=== PATIENT | male | born 1980 | race Caucasian/White ===

== ENCOUNTER 2018-02-22 12:03 | Emergency (ER) | payer MEDICAID, SELFPAY ==
--- NOTE | 2018-02-22 12:14 | DI.REPORT_ITS ---
SYMPTOM/DIAGNOSIS: INGESTED 90 TRAZODONE TABLETS ACUTE ABDOMINAL SERIES: No priors. Heart size and pulmonary vasculature are within normal limits. The lungs are clear. The abdomen shows no evidence of obstruction, organomegaly or pneumoperitoneum. The bones and joints are unremarkable. IMPRESSION: Negative examination.
[2018-02-22 12:19] VITALS: BP 136/67; PULSE 80; RESP 18; TEMP 36.7; O2SAT 94
--- NOTE | 2018-02-22 12:21 | ED.GENADUL_ITS ---
Disposition Clinical Impression: Depression, Overdose, Suicide attempt, Overdose of trazodone Disposition: [facility] Condition: Stable Instructions: Depression (ED) Medical Decision Making - Medical Decision Making A 37-year-old male with a past medical history of substance abuse, who presents today for overdose and suicidal ideations. Patient states that within the last month his left with his children, so last night after doing a notable amount of cocaine over the last few weeks he attempted to hang himself with an extension cord. During the process he stopped, took himself down, and then instead took 90 tablets of trazodone at 5 PM last night roughly 18 hours prior to arrival. He is uncertain of the exact dose. Throughout the night the patient had some palpitations and was drowsy but no other complaints. He is brought into the ER by family today. Currently the patient does admit to some mild drowsiness, but denies any other chest pain, shortness of breath, numbness tingling weakness. EKG demonstrates evidence of a single PVC, QRS and QTc are within normal limits. We will perform a laboratory workup, evaluate the patient and have mental health come and assess the patient. Currently the patient demonstrates no signs of airway compromise, obtundation, serotonin syndrome, or EKG abnormalities suggestive of TCA overdose. EKG 12:13 Rate 77, MA 158, QTc 466, QRS 98, sinus rhythm with a premature ventricular contraction. No ST elevations or depressions. No T-wave inversions. No evidence of QTC or QRS prolongation. 3:10 PM Patient's laboratory workup has returned relatively benign. Salicylates and acetaminophen are within normal limits. He shows no signs of acidosis, no abnormalities on EKG. X-ray of the abdomen and chest is negative for any acute process per virtual radiology. I did contact poison control and discussed the case with them they had no additional recommendations. The patient is being seen and assessed by our mental health professionals. I feel that the patient is medically cleared for psychiatric management. 6:28 PM Patient remains hemodynamically stable as well as psychiatrically stable however he still is depressed and does admit to suicidal ideations continued thoughts of suicide and self-harm. We have contacted [facility] and they have agreed for acceptance of the patient to their facility. I discussed the case with jessica Jo, and she agrees to accept the patient under her care. Patient will be transferred Via Absorption Plant Operator to the [facility]. I have extensively reviewed the treatment plan with the patient. I have addressed all patient concerns at this time. I have also discussed the plan with the admitting physician and they agree with the current assessment and plan and have agreed to assume responsibility for the patient. All parties demonstrate verbal understanding and agreement with our assessment and plan at this time. History of Present Illness - General Chief complaint: OD/Poison Stated complaint: EVAL Time Seen by Provider: 02/22/18 12:12 - History of Present Illness Initial comments: This is a 37-year-old male with past medical history of substance abuse, crack cocaine use, Suboxone use, and depression who presents today for evaluation of overdose. Patient states that one month ago his and children left him and he underwent a divorce. He has been going on a bradford of multiple runs of crack cocaine over the last few weeks. He states this is the only drug he has been using. Up until last night when the patient at 5 PM took 80-90 trazodone pills. He is unsure as to the dosage of the medication as it is an old prescription. Immediately prior to taking these medications he did try to hang himself with an extension cord, however after he wrapped it around his neck and applied tension he did not have the courage to go through with it and reverted to utilizing medications in an attempt to kill himself. Since then the patient has had palpitations, and has been extremely drowsy but has not slept. He denies any prolonged erection. This morning his mother and ex- checked in on him and noticed him in his current state brought him here for further evaluation. Patient denies any chest pain, headache, fevers, chills , numbness tingling or weakness. He denies any significant past surgeries. He does admit to a family history of suicide. He has no other complaints at this time. - Related Data Allergies Allergy/AdvReac Type Severity Reaction Status Date / Time No Known Allergies Allergy Unverified 02/22/18 12:55 Review of Systems Other: 10 point review of systems was performed, pertinent positives and negatives are noted in the history of present illness. General Exam - Other Other exam information: 1.Const: Well-nourished, Well-developed, appearing stated age 2.Eyes: PERRL, no conjunctival injection, and symmetrical lids. 3.ENT: Atraumatic external nose and ears. Moist MM. Neck: Symmetric, trachea midline, No thyromegaly. 4.CVS: +S1/S2, No murmurs or gallops. Peripheral pulses 2+ and equal in all extremities. Brisk capillary refill in all extremities. 5.RESP: Unlabored respiratory effort. Clear to auscultation bilaterally. No wheezes rales or rhonchi 6.GI: Soft, Nontender/Nondistended, No hepatosplenomegaly. No guarding or rebound. 7.MSK: Normocephalic/Atraumatic, Extremities w/o deformity or ttp No cyanosis or clubbing, Normal movement of all extremities. No evidence of clonus or hyperreflexia. +2 patellar reflexes bilaterally. No evidence of cogwheel rigidity, leadpipe rigidity. No asterixis. 8.Skin: Warm, Dry. No rashes or lesions. 9.Neuro: tuber machine operator helper II-XII grossly intact. Sensation grossly intact, no focal neurologic deficits. 10.Psych: (AAO) x3. Appropriate mood and affect
[2018-02-22 12:52] LABS: BE (Venous) 3.4 mmol/L (-3-3); HCO3 (Venous) 28 mmol/L (22-28); O2 Sat (Venous) 86 % (70-80); TCO2 (Venous) 25 mmol/L (22-29); pCO2 (Venous) 44 mm/Hg (34-47); pH (Venous) 7.41 (7.32-7.43); pO2 (Venous) 47 mm/Hg (28-44)
[2018-02-22] MEDS: Normal Saline 1,000 ML 1000 ML IV (12:55)
[2018-02-22 12:56] LABS: Abs Immature Grans 0.01 k/cumm (0.0-0.09); Absolute Basophil Count 0.05 k/cumm (0.0-0.2); Absolute Eosinophil Count 0.04 k/cumm (0.0-0.7); Absolute Lymphocyte Count 2.03 k/cumm (1.2-3.4); Absolute Monocyte Count 0.51 k/cumm (0.11-0.7); Absolute Neutrophil Count 6.56 k/cumm (1.2-6.7); Basophils % 0.5; Eosinophils % 0.4; HCT 43.4 % (40.0-50.0); HGB 14.4 g/dL (13.5-17.5); Immature Grans % 0.1; Lymphocytes % 22.1; Mean Corp. HGB Concentration 33.2 g/dL (32.0-36.0); Mean Corpuscular Hemoglobin 29.9 pg (27.0-33.0); Mean Corpuscular Volume 90.2 fL (80-95); Mean Platelet Volume 10.5 fL (8.0-11.0); Monocytes % 5.5; Neutrophils % 71.4; Platelet Count 297 x1000/uL (130-400); RBC 4.81 m/cumm (4.50-6.00)
[2018-02-22 13:05] LABS: Ammonia < 10 umol/L (11-32)
[2018-02-22 13:10] LABS: Salicylate 4.2 mg/dL (2.8-20.0)
[2018-02-22 13:11] LABS: Acetaminophen < 2 ug/mL (10-30)
[2018-02-22 13:17] LABS: ALT 28 U/L (12-78); AST 28 U/L (15-37); Albumin 3.8 g/dL (3.4-5.0); Alkaline Phosphatase 90 U/L (46-116); Anion Gap 6.2 mmol/L (3-11); BUN 9 mg/dL (7-18); Bilirubin, Total 0.6 mg/dL (0.2-1.0); CO2 27.8 mmol/L (21.0-32.0); CREATININE 1.15 mg/dL (0.70-1.30); Calcium 8.9 mg/dL (8.5-10.1); Chloride 102 mmol/L (98-107); Glucose 107 mg/dL (70-100); Lipase 67 U/L (73-393); Potassium 3.7 mmol/L (3.5-5.1); Sodium 136 mmol/L (136-145); TSH 0.51 uIU/mL (0.358-3.74); Total Protein 7.2 g/dL (6.4-8.2); Troponin I 0.02 ng/mL (0.00-0.06)
[2018-02-22 13:34] LABS: ETHANOL BLOOD < 3.0 mg/dL (<3)
[2018-02-22 13:53] LABS: Bilirubin Negative (Negative); Blood Negative (Negative); Clarity Clear; Glucose Negative (Negative); Ketones 15 mg/dL (Negative); Leukocyte Esterase Negative (Negative); Nitrite Negative (Negative); Urobilinogen 0.2 EU/dL (Up TO 0.2)
[2018-02-22 14:10] LABS: *AMPHETAMINES SCREEN URINE Negative (Negative); *BARBITURATES SCREEN URINE Negative (Negative); *BENZODIAZEPINES SCREEN URINE Negative (Negative); Cannabinoids THC Negative (Negative); Cocaine Screen,Urine POSITIVE (Negative); METHADONE URINE SCREEN Negative (Negative); OPIATES URINE SCREEN Negative (Negative)
[2018-02-22 14:16] LABS: Tricyclic Antidepressants Negative (Negative)
--- NOTE | 2018-02-22 14:29 | DI.VRAD_ITS ---
EXAM: XR Abdomen 2 Views With XR Chest EXAM DATE/TIME: 02/22/2018 12:15 PM CLINICAL HISTORY: 37 years old, male; Signs and symptoms; Other: Ingested 90 trazadone tablets yesterday TECHNIQUE: Frontal view of the chest, frontal view of the abdomen/pelvis and upright or decubitus view of the abdomen. COMPARISON: No relevant prior studies available. FINDINGS: Lungs: Unremarkable. No consolidation. Pleural space: Unremarkable. No pneumothorax. Heart: Unremarkable. No cardiomegaly. Mediastinum: Unremarkable. Intraperitoneal space: No free air. Gastrointestinal tract: Unremarkable. No dilation. Organs: Unremarkable as visualized. Bones/joints: Unremarkable. IMPRESSION: No evidence for acute abnormality. Preliminary interpretation is based on receipt of 3 image(s). A final report will be issued subsequently. We appreciate the opportunity to be involved in this patient's care. Dictated and Authenticated by: Aneta Last MD. Ordering:CHACHO HERMOSILLO MD
--- NOTE | 2018-02-22 14:57 | ERMH_ITS ---
Presenting issue: [Suicidal patient] *How did they arrive here at ER and why did they come: [Brought in to [facility] by his parents. He has overdosed on trazodone pills and tried to tie a belt around his neck in his latest suicidal attempt. He is addicted to opiates and has been using cocaine.] Precipitating Factors: [] *Assessment of Safety SI / HI- (Address delusions if pertaining to the SI/ HI) [Patient reports his life is a mess, he is very depressed. His left with his kids. He has no job, his living conditions are deplorable. He is sucidal and has made serious attempts in the last two days.He himself does not feel safe and he would like some help.] Disposition: [] *Behavior: [cooperative] *Eye Contact: [good] *Mood: [depressed] *Affect: [flat] *Appetite: [good] *Sleep (trouble falling/staying asleep): [reports he can't sleep much. up all night] Plan: (please elaborate and include that physician is consulted with plan and/ or placement): [ER physician Dr. Guevara is in agreement that this patient is in a statue of suicidal ideation and has made serious attempts to take his life. He has his parents with him who also believe he is not safe and will harm himself given the chance. There may be an available bed at [facility]. LGBTQ unit.] Provisional Diagnosis:(only if required by physician): [] AXIS 5 Case Handover: Done with ED nurse (name): [] Date & Time [] Huddle: done with ED staff (for boarding clients): [] Yes [] No Date /Time [] Referral for Case management: Has phone call for introduction been made [] Yes [x] No Referral in EMR: Done and sent? [] Yes [x] NO Clinicians Name and title and Signature: [Gail iGbbons, [facility], [facility] Emergency Services Clinician] Make sure that you are photocopying and submitting this to [facility] records dept.to be scanned into chart
--- NOTE | 2018-02-22 15:38 | PDOC.ERCMPRO ---
Care Management Progress Note 37 year old male presenting to the ED with PMH significant for substance abuse, daily crack cocaine use and street suboxone who ingested 80 trazadone pills last evening and reports ongoing suicidal ideation. Stanton presents as calm and appropriate with all staff interactions. He is voluntary for placement and he and his family are requesting support. Safety plan has been established with patient, and care team, to adhere to patient goals, identify restrictions based on behavioral status, address nutrition, and determine allowed personal belongings, tools for hygiene and personal care. Determine level of activity including ambulation, level of supervision, visitors, and determine privileges based on behaviors and level of engagement by Stanton . SAFETY PLAN: 1. Will remain on suicide precautions and in paper clothes. 2. Will remain in room under direct supervision of one-on-one staff at all times provided by NICOLE, GAME ARTIST thermal surfacing machine operator. 3. May have paper cups, plates, finger foods as well as a metal spoon with which to eat meals. [facility] staff will be responsible for accounting of utensils after meals. 4. Follow [facility] Management of the Admitted Behavioral Health Patient policy printed and attached to the safety plan in physical chart. 5. Comfort bath system only. 6. No personal belongings 7. May have visitors at patient discretion. [facility] will be coordinating placement at inpatient facility, last updates included the following: Gail reports possible bed at : she continues to coordinate and will contact team with updates. Patient is currently voluntarily at [facility] and seeking inpatient admission when a bed becomes available. [facility] Frontline Regulatory Manager will continue seeking placement. Please contact the Open Pit Quarry Supervisor Rejogger ([phone]) and [facility] Regulatory Manager ([phone]) for any needed changes in the Safety Plan. Safety plan has been provided to interdepartmental care team including Clinical Coordinator , Nursing Clutch Rebuilder.
--- NOTE | 2018-02-22 15:43 | CMPROGNOTE_ITS ---
Care Management Progress Note 37 year old male presenting to the ED with PMH significant for substance abuse, daily crack cocaine use and street suboxone who ingested 80 trazadone pills last evening and reports ongoing suicidal ideation. Stanton presents as calm and appropriate with all staff interactions. He is voluntary for placement and he and his family are requesting support. Safety plan has been established with patient, and care team, to adhere to patient goals, identify restrictions based on behavioral status, address nutrition, and determine allowed personal belongings, tools for hygiene and personal care. Determine level of activity including ambulation, level of supervision, visitors, and determine privileges based on behaviors and level of engagement by Stanton . SAFETY PLAN: 1. Will remain on suicide precautions and in paper clothes. 2. Will remain in room under direct supervision of one-on-one staff at all times provided by NICOLE, RN TELEPHONIC incinerator attendant. 3. May have paper cups, plates, finger foods as well as a metal spoon with which to eat meals. [facility] staff will be responsible for accounting of utensils after meals. 4. Follow [facility] Management of the Admitted Behavioral Health Patient policy printed and attached to the safety plan in physical chart. 5. Comfort bath system only. 6. No personal belongings 7. May have visitors at patient discretion. [facility] will be coordinating placement at inpatient facility, last updates included the following: Gail reports possible bed at : she continues to coordinate and will contact team with updates. Patient is currently voluntarily at [facility] and seeking inpatient admission when a bed becomes available. [facility] Frontline Game Breeding Farm Manager will continue seeking placement. Please contact the Civil Process Server Logistics Support ([phone]) and [facility] Game Breeding Farm Manager ([phone]) for any needed changes in the Safety Plan. Safety plan has been provided to interdepartmental care team including Clinical Coordinator , Nursing Power Generation Plant Operator.
== END 2018-02-22 18:53 | disposition short-term general hospital (02) ==
PROVIDERS: Emergency Provider Student in an Organized Health Care Education/Training Program
DX: T43.212A Poisoning by selective serotonin and norepinephrine reuptake inhibitors, intentional self-harm, initial encounter (principal); F32.9 Major depressive disorder, single episode, unspecified; F14.99 Cocaine use, unspecified with unspecified cocaine-induced disorder; R45.851 Suicidal ideations
CPT/HCPCS: 36415; 80053; 80307; 82805; 83690; 93005; 96360; 99283; 99285; 74022; 80320; 80329; 81003; 82140; 84443; 84484; 85025; 93010